=== PATIENT | male | born 1980 | race Caucasian/White ===

== ENCOUNTER 2021-03-22 08:52 | Emergency (ER) | payer OTHER, SELFPAY ==
[2021-03-22 09:05] VITALS: BP 144/88; PULSE 84; RESP 18; TEMP 36.6; O2SAT 99; BMI 27.8
[2021-03-22] MEDS: HYDROCODONE/ACET 5/325 TABLET 1 TAB PO (09:09)
[2021-03-22] MEDS: predniSONE 20 MG TABLET 60 MG PO (09:12)
--- NOTE | 2021-03-22 09:17 | ED.BACK ---
HPI - Back Pain/Injury General Chief Complaint: Back Pain/Injury Stated Complaint: lower back pain Time Seen by Provider: 03/22/21 09:00 Source: patient Mode of arrival: Ambulatory Limitations: no limitations History of Present Illness HPI Narrative: 40-year-old male former smoker with history of lumbar radiculopathy presents with a chief complaint of few days of worsening lumbar pain that radiates into both hips and lateral thighs but stops at the knees. He is unclear what activity he may have set off this time but states it happens every 6 months or so. He states the pain is worse when he moves and improves with rest. He states it is sharp and stabbing in nature. He denies any numbness, tingling or weakness. He denies any footdrop. He denies any fever, chills or trauma. Denies any history of IV drug abuse or blood thinners. He denies loss of control of bowel or bladder. MD Complaint: back pain Onset (ago): day(s) Duration: constant Similar Symptoms Previously: Yes Location: lumbar spine Severity: moderate Quality: sharp and stabbing Radiation: left leg and right leg Relieving factors: immobilization Exacerbating factors: movement and walking Associated symptoms: denies other symptoms Treatments prior to arrival: NSAIDS Related Data Previous Rx's Medication Instructions Recorded cyclobenzaprine 10 mg PO TID PRN #14 tab 03/22/21 gabapentin 300 mg PO BEDTIME #14 cap 03/22/21 hydrocodone-acetaminophen 1 tab PO Q4-6H PRN #10 tab 03/22/21 ketorolac 10 mg PO Q6H PRN #14 tab 03/22/21 methylprednisolone [Medrol (Jose)] See Rx Instructions .ROUTE 03/22/21 .COMPLEX #21 ea Allergies Allergy/AdvReac Type Severity Reaction Status Date / Time codeine Allergy Rash Verified 03/22/21 09:05 Review of Systems Constitutional Constitutional: Denies chills, Denies fatigue, Denies fever(s), Denies frequent falls, Denies lethargy and Denies weakness Eyes Eyes: Denies change in vision, Denies eye discharge, Denies irritation and Denies loss of vision ENT Ears, Nose, Mouth, and Throat: Denies change in voice, Denies dizziness, Denies neck pain, Denies sore throat and Denies throat swelling Cardiovascular Cardiovascular: Denies chest pain, Denies irregular heart rhythm, Denies lightheadedness, Denies palpitations, Denies dyspnea, Denies dyspnea on exertion and Denies orthopnea Respiratory Respiratory: Denies cough, Denies dyspnea, Denies dyspnea on exertion and Denies wheezing Gastrointestinal Gastrointestinal: Denies abdominal pain, Denies change in bowel habits, Denies diarrhea, Denies nausea and Denies vomiting Musculoskeletal Musculoskeletal: Reports back pain, Denies neck pain, Denies numbness and Reports radiating pain into limb Integumentary/Breasts Skin/Breast: Denies pruritus, Denies erythema, Denies rash and Denies wounds Neurologic Neurologic: Denies behavioral changes, Denies confusion, Denies dizziness, Denies frequent falls, Denies loss of vision, Denies numbness and Denies weakness Psychiatric Psychiatric: Denies anxiety, Denies behavioral changes, Denies confusion, Denies depression, Denies homicidal ideation and Denies suicidal ideation Endocrine Endocrine: Denies fatigue, Denies flushing and Denies palpitations Hematologic/Lymphatic Hematologic/Lymphatic: Denies easy bruising Allergic/Immunologic Allergic/Immunologic: Denies urticaria, Denies throat swelling and Denies wheezing Patient History Social History Smoking Status: Former smoker Smoking Status: Former smoker alcohol intake frequency: 3 or more drinks per day Alcohol type: beer Substance Use Type: does not use Exam Initial Vital Signs Initial Vital Signs: Vital Signs Temperature 97.8 F 03/22/21 09:05 Pulse Rate 84 03/22/21 09:05 Respiratory Rate 18 03/22/21 09:05 Blood Pressure 144/88 H 03/22/21 09:05 Pulse Oximetry 99 03/22/21 09:05 Const General: cooperative and well developed Nutritional Appearance: well nourished [facility] Head: normocephalic and atraumatic Ears: external ears normal and TM's normal bilaterally Nose: external nose normal and No nasal discharge Face and sinus: sinuses nontender, face symmetric, no sinus tenderness and No dry mucous membranes Mouth: oral mucosae normal and moist mucous membranes Teeth and gingiva: dentition normal Throat: tonsils normal and uvula midline Eyes General: appearance normal, both eyes and all related structures Eyelids: eyelids normal Conjunctivae: conjunctivae normal Sclera: sclerae normal Pupils: PERRL EOM: EOM intact bilaterally Neck Neck: normal visual inspection, trachea midline, No lymphadenopathy, No midline deformity and No JVD Lymphatic: No lymphedema Chest Chest: normal inspection of the chest Resp Effort & Inspection: normal respiratory effort, able to speak in complete sentences, no respiratory distress and no use of accessory muscles Auscultation: clear to auscultation bilaterally, no rales, no rhonchi and no wheezes Cardio Rate: regular rate Rhythm: regular rhythm Heart Sounds: no click, no gallops, no murmurs and no rubs Pulses: normal peripheral pulses GI Inspection: non-distended Palpation: soft, no hepatosplenomegaly, No guarding, No pulsatile mass and No tender Auscultation: normal bowel sounds Back/Spine/Pelvis Back: CVA tenderness Cervical Spine: cervical ROM normal and No pain with cervical ROM Other: BACK: belt tender but free of any obvious external abnormalities. Patient exam notes decreased range of motion and muscle spasm, but no CVA tenderness, or vertebral point tenderness. There are no symptoms of cauda equina such as saddle anesthesia, and decreased reflexes, decreased sensation or strength. Skin General: no rashes or lesions noted, No jaundice and No petechiae Neuro General: patient alert, patient oriented x3, gait normal and no focal motor deficits Speech: speech normal Extrem General: full ROM, no clubbing, cyanosis or edema, no pedal edema and no calf tenderness Psych Appearance: well kempt Mental Status: mental status grossly normal Attitude: cooperative Thought Content: normal and suicidality Judgment: judgment good Course Orders Ordered: Discontinued Medications Hydrocodone Bitart/Acetaminophen (Hydrocodone/Acet 5/325 Tablet) 1 tab PO NOW ONE Stop: 03/22/21 09:05 Last Admin: 03/22/21 09:09 Dose: 1 tab Documented by: CTR.[email or web address] Prednisone (Prednisone 20 Mg Tablet) 60 mg PO NOW ONE Stop: 03/22/21 09:05 Last Admin: 03/22/21 09:12 Dose: 60 mg Documented by: CTR.[email or web address] Vital Signs Vital signs: Vital Signs - 8 hr 03/22/21 09:05 Temperature 97.8 F Pulse Rate 84 Respiratory Rate 18 Blood Pressure 144/88 H Pulse Oximetry 99 MDM - Back Pain/Injury MDM Narrative Medical decision making narrative: Multiple etiologies of back pain considered including; Epidural abscess, cauda equina, mass occupying lesion, and other considered, however no red flags consistent with neurosurgical emergency are present. Return precautions given and questions answered to his apparent satisfaction Discharge Plan Departure Patient Disposition: Home Clinical Impression: Bilateral lumbar radiculopathy Instructions: DI for Lumbar Radiculopathy Activity Restrictions/Additional Instructions: *You have been diagnosed with [on chronic bilateral lumbar radiculopathy] *What to do: *Please continue to take your regular medications as directed. [x ] New medication prescriptions sent to your pharmacy: [[facility] in [place]] [ ] New medication written as a paper prescription [ ] No new medications given *Please follow up with your primary care provider in 2-3 days, call for an appointment. Let them know you were seen in the Emergency Department and that we ask that you be seen in follow up. We will electronically transmit a record of today's note if your PCP is in our system *If you do not have a primary care provider please contact the [facility] Resource line at [phone]. They will ask some questions about your medical history and help get you set up with a doctor in the community. *Return to Emergency Department if you should have any new, worsening or concerning symptoms, such as [fever greater than 101 F, shaking chills, worsening pain, persistent vomiting or other bothersome symptoms] Prescriptions: New cyclobenzaprine 10 mg tablet 10 mg PO TID PRN (Reason: muscle spasm) Qty: 14 RF: 0 hydrocodone-acetaminophen 5-325 mg tablet 1 tab PO Q4-6H PRN (Reason: pain) Qty: 10 RF: 0 ketorolac 10 mg tablet 10 mg PO Q6H PRN (Reason: pain) Qty: 14 RF: 0 gabapentin 300 mg capsule 300 mg PO BEDTIME Qty: 14 RF: 0 methylprednisolone [Medrol (Jose)] 4 mg tablets,dose pack See Rx Instructions .ROUTE .COMPLEX Qty: 21 RF: 0 Referrals: [facility] [Outside] Stand Alone Forms: Work Release Note
== END 2021-03-22 09:28 | disposition home or self-care (01) ==
PROVIDERS: Emergency Provider Emergency Medicine
DX: M54.16 Radiculopathy, lumbar region (principal)
CPT/HCPCS: 99283

== ENCOUNTER 2024-09-28 23:12 | Emergency (ER) | payer OTHER, SELFPAY ==
[2024-09-28 23:17] VITALS: BP 143/92; PULSE 94; O2SAT 98
[2024-09-28 23:22] VITALS: BP 143/92; PULSE 95; RESP 20; TEMP 36.4; O2SAT 99; BMI 32.2
--- NOTE | 2024-09-28 23:25 | ED.ABDPAIN ---
HPI - Abdominal Pain General Chief Complaint: Abdominal Pain Stated Complaint: abd pain Time Seen by Provider: 09/28/24 23:17 History of Present Illness HPI narrative: 43-year-old male with no reported past medical history (has not followed with PCP for many years) presents by private vehicle from home for 2-3 days of midepigastric abdominal pain with acid sensation. Saw the walk-in clinic yesterday for sore throat and he was reported to be negative for strep. He was prescribed antacids, which he was not taken yet. Patient states that he feels like things are burning in his mid abdomen and occasionally they get caught and he was to spit backup. Denies history of abdominal surgeries. Reports 2-3 alcoholic beverages per night. Related Data Previous Rx's Medication Instructions Recorded cyclobenzaprine 10 mg tablet 10 mg PO TID PRN muscle spasm #14 03/22/21 tabs gabapentin 300 mg capsule 300 mg PO BEDTIME #14 caps 03/22/21 hydrocodone 5 mg-acetaminophen 325 1 tab PO Q4-6H PRN pain #10 tabs 03/22/21 mg tablet ketorolac 10 mg tablet 10 mg PO Q6H PRN pain #14 tabs 03/22/21 methylprednisolone 4 mg tablets in See Rx Instructions PO .COMPLEX 03/22/21 a dose pack (Medrol (Jose)) #21 ea ondansetron 4 mg disintegrating 4 mg PO Q8H PRN nausea and 09/29/24 tablet vomiting #30 tabs ondansetron 4 mg disintegrating 4 mg PO Q8H PRN nausea and 09/29/24 tablet vomiting #30 tabs sucralfate 1 gram tablet 1 g PO QACHS #30 tabs 09/29/24 sucralfate 1 gram tablet 1 g PO QACHS #30 tabs 09/29/24 Allergies Allergy/AdvReac Type Severity Reaction Status Date / Time codeine Allergy Rash Verified 03/22/21 09:05 Patient History Social History Smoking Status: Former smoker Smoking Status: Former smoker alcohol intake frequency: 3 or more drinks per day Alcohol type: beer Exam Initial Vital Signs Initial Vital Signs: Vital Signs Pulse Rate 94 H 09/28/24 23:17 Blood Pressure 143/92 H 12/19/24 23:17 Pulse Oximetry 98 12/19/24 23:17 Const: Awake, alert, no acute distress, nontoxic appearing Cardiac: regular rate, regular rhythm RESP: unlabored, clear bilaterally, no wheezing GI: Soft, midepigastric tenderness to deep palpation without rebound or guarding Skin: Warm, Dry, intact, no rashes Neuro: AO x3, CN II-XII grossly intact, moves all extremities Course Orders Ordered: ED Orders 09/28/24 23:24 CT abdomen pelvis w con Stat 09/28/24 23:25 EKG-12 Lead Stat 09/28/24 23:30 CBC Auto Diff [Complete Blood Count AUTO DIFF] Stat CMP [Comprehensive Metabolic Panel] Stat Ethanol (ETOH) Stat Lactate (Lactic Acid) Stat Lipase Stat Troponin & CK Cardiac Panel Stat Discontinued Medications Al Hydrox/Mg Hydrox/Simethicone (Mag Hydrox/Alum/Simeth 30 Ml Udc) 30 ml PO NOW ONE Stop: 09/29/24 00:16 Last Admin: 09/29/24 00:28 Dose: 30 ml Lidocaine HCl (Lidocaine Viscous 2% 15 Ml Solution) 15 ml PO NOW ONE Stop: 09/29/24 00:16 Last Admin: 09/29/24 00:28 Dose: 15 ml Vital Signs Vital signs: Vital Signs - 8 hr 09/28/24 23:17 09/28/24 23:17 09/28/24 23:22 Temperature 97.6 F Pulse Rate 94 H 95 H Respiratory Rate 20 Blood Pressure 143/92 H 143/92 H Pulse Oximetry 98 99 Oxygen Delivery Method Room Air 09/28/24 23:30 09/29/24 00:00 09/29/24 00:30 Temperature Pulse Rate 88 78 80 Respiratory Rate Blood Pressure Pulse Oximetry 97 97 98 Oxygen Delivery Method MDM - Abdominal Pain Differential Diagnosis Differential diagnosis: Likely abdominal pain, acute appendicitis and calculus of kidney Lab Data 09/28/24 23:30 09/28/24 23:30 Labs: Lab Results 09/28/24 Range/Units 23:30 WBC 12.1 H (4.5-11.0) X10^3/uL RBC 4.83 (4.5-5.9) X10^6/uL Hgb 15.4 (13.5-17.5) g/dL Hct 44.8 (41-53) % MCV 92.8 (80-100) fL MCH 31.8 (26-34) PG MCHC 34.3 (30-36) % RDW 13.2 (11.6-14.8) % Plt Count 294 (150-400) X10^3/uL Neut % (Auto) 68.6 (50-75) % Lymph % (Auto) 20.5 L (25-40) % [place] % (Auto) 7.7 (3-14) % Eos % (Auto) 2.9 (2-4) % Baso % (Auto) 0.3 (0-2) % Neut # (Auto) 8300 H (8964-5944) /uL Lymph # (Auto) 2500 (1775-7452) /uL [place] # (Auto) 900 (0-900) /uL Eos # (Auto) 400 (0-450) /uL Baso # (Auto) 0 (0-100) /uL Sodium 137 (137-145) mmol/L Potassium 3.7 (3.4-5.1) mmol/L Chloride 105 (98-107) mmol/L Carbon Dioxide 26 (22-32) mmol/L BUN 20 (9-20) mg/dL Creatinine 1.15 (0.66-1.25) mg/dL Estimated GFR > 60 (>60) mL/min BUN/Creatinine Ratio 17.4 (6-22) Glucose 153 H (70-100) mg/dL Lactate 1.1 (0.7-2.1) mmol/L Calcium 9.7 (8.4-10.2) mg/dL Total Bilirubin 0.4 (0.2-1.3) mg/dL AST 49 (17-59) IU/L ALT 72 H (<50) IU/L Alkaline Phosphatase 67 (38-126) U/L Total Creatine Kinase 213 H (55-170) U/L Troponin I < 0.012 (0.01-0.034) ng/mL Total Protein 7.6 (6.3-8.2) g/dL Albumin 4.2 (3.5-5.0) g/dL Globulin 3.4 (1.7-4.1) g/dL Albumin/Globulin Ratio 1.2 (1.0-2.8) Lipase 64 (23-300) U/L Ethyl Alcohol < 10 ( - 10) mg/dL Imaging Data CT scan - abdomen/pelvis: Radiologist's Impression: PROCEDURE: CT ABDOMEN PELVIS W CON INDICATIONS: MIDEPIGASTRIC PAIN, VOMITING X 4 DAYS TECHNIQUE: After the administration of intravenous contrast, axial sections acquired from the lung bases to the pubic symphysis. Coronal and sagittal reformats were performed. For radiation dose reduction, the following was used: automated exposure control, adjustment of mA and/or kV according to patient size. COMPARISON: None. FINDINGS: Image quality: Diagnostic. Lower Chest: No significant findings. ABDOMEN: Liver: No solid mass. Severe steatosis. Gallbladder: No radiopaque gallstones or wall thickening. Biliary ducts: No biliary dilation. Pancreas: No ductal dilation. Spleen: Size is within normal limits. Adrenal Glands: No adrenal nodules. Kidneys and Ureters: No hydronephrosis. No solid mass. No complex renal cystic lesion which requires follow up. Stomach and Bowel: Normal colonic caliber, without significant wall thickening. Normal appendix. Mild diverticulosis. Peritoneum: No abnormal intraperitoneal fluid. No free air. Ventral Wall: No significant ventral hernia. Small umbilical hernia containing fat. Abdominal Nodes: No retroperitoneal or mesenteric adenopathy by size criteria. Vessels: Aorta and inferior vena cava are normal in size. PELVIS: Pelvic Organs: Unremarkable. Bladder: No bladder wall thickening, accounting for underdistention. Pelvic Nodes: No enlarged lymph nodes. Miscellaneous: No inguinal hernias are seen. Bones: No aggressive osseous abnormality. IMPRESSION: No acute abnormality. No peripancreatic fat stranding. No evidence of acute cholecystitis. Hepatic steatosis. In the absence of alcohol use or other confounding factors, elevated LFTs may indicate non-alcoholic steatohepatitis (GONZALEZ). Dictated by: Miguel Perez M.D. on 09/29/2024 at 0:00 Approved by: Miguel Perez M.D. on 09/29/2024 at 0:04 [facility] Narrative Medical decision making narrative: Patient with worsening abdominal pain, occasionally regurgitates. Abdomen soft, there is tenderness to deep palpation in the midepigastric region. Consider pancreatitis vs gastritis vs cholecystitis. Does endorse hx of alcohol use and had 2 white claws this evening. Labs, GI cocktail, CT scan ordered. Laboratory work reviewed, no significant abnormalities. WBC count 12.1, nonspecific. Hemoglobin 15.4, platelet count 294, sodium 137, potassium 3.7, creatinine 1.15, lipase 64, T bili 0.4, AST 49, ALT 72, alk phos 67. CT of the abdomen and pelvis shows enlarged fatty liver, no other acute findings. Patient states that pain was mildly improved with GI cocktail, but still present. Patient informed of lab and imaging findings, uncertain etiology of patient's pain, however with CT scan normal except for large liver he quite possibly has some gastric component to his pain. He was advised to decrease his alcohol intake and to monitor his diet and decrease a irritants to see if this helps his symptoms. Zofran and Carafate prescription sent to pharmacy of choice. Note for work provided. Discharge Plan Departure Patient Disposition: Home Clinical Impression: Abdominal pain Instructions: DI for Abdominal Pain-Adult Activity Restrictions/Additional Instructions: Your lab work did not show any major abnormalities. Your abdominal CT scan showed that you have a fatty liver, but there were no other major problems seen. This could be related to irritation of the stomach lining, or gastritis. For the next several weeks decrease your alcohol intake and avoid spicy or acidic foods such as sodas, red sauces, caffeinated beverages. These can worsen irritation of the stomach. The zofran prescribed can help with nausea and vomiting. Sucralfate can help to line the stomach so it can heal better. Prescriptions: New ondansetron 4 mg tablet,disintegrating 4 mg PO Q8H PRN (Reason: nausea and vomiting) Qty: 30 0RF sucralfate 1 gram tablet 1 g PO QACHS Qty: 30 0RF ondansetron 4 mg tablet,disintegrating 4 mg PO Q8H PRN (Reason: nausea and vomiting) Qty: 30 0RF sucralfate 1 gram tablet 1 g PO QACHS Qty: 30 0RF No Action cyclobenzaprine 10 mg tablet 10 mg PO TID PRN (Reason: muscle spasm) Qty: 14 0RF hydrocodone-acetaminophen 5-325 mg tablet 1 tab PO Q4-6H PRN (Reason: pain) Qty: 10 0RF ketorolac 10 mg tablet 10 mg PO Q6H PRN (Reason: pain) Qty: 14 0RF gabapentin 300 mg capsule 300 mg PO BEDTIME Qty: 14 0RF methylprednisolone [Medrol (Jose)] 4 mg tablets,dose pack See Rx Instructions .ROUTE .COMPLEX Qty: 21 0RF Rx Instructions: orally per package directions Stand Alone Forms: Patient Portal/API/Survey, Work Release Note
[2024-09-28 23:30] VITALS: PULSE 88; O2SAT 97
[2024-09-28 23:39] LABS: Add Manual Diff / Slide Review NO; Basophils Absolute Auto 0 /uL (0-100); Basophils Percent Auto 0.3 % (0-2); Eosinophils Absolute Auto 400 /uL (0-450); Eosinophils Percent Auto 2.9 % (2-4); Hematocrit 44.8 % (41-53); Hemoglobin 15.4 g/dL (13.5-17.5); Lymphocytes Absolute Auto 2500 /uL (1100-4500); Lymphocytes Percent Auto 20.5 % (25-40); Mean Corpuscular HGB Conc 34.3 % (30-36); Mean Corpuscular Hemoglobin 31.8 PG (26-34); Mean Corpuscular Volume 92.8 fL (80-100); Monocytes Absolute Auto 900 /uL (0-900); Monocytes Percent Auto 7.7 % (3-14); Neutrophils Absolute Auto 8300 /uL (1500-7000); Neutrophils Percent Auto 68.6 % (50-75); Platelet Count 294 X10^3/uL (150-400); Red Blood Cell Count 4.83 X10^6/uL (4.5-5.9); Red Cell Distribution Width 13.2 % (11.6-14.8); White Blood Cell Count 12.1 X10^3/uL (4.5-11.0)
[2024-09-28 23:49] LABS: Alanine Aminotransferase 72 IU/L (<50); Albumin 4.2 g/dL (3.5-5.0); Albumin Globulin Ratio 1.2 (1.0-2.8); Alkaline Phosphatase 67 U/L (38-126); Aspartate Aminotransferase 49 IU/L (17-59); BUN Creatinine Ratio 17.4 (6-22); Bilirubin Total 0.4 mg/dL (0.2-1.3); Blood Urea Nitrogen 20 mg/dL (9-20); Calcium 9.7 mg/dL (8.4-10.2); Carbon Dioxide 26 mmol/L (22-32); Chloride 105 mmol/L (98-107); Creatine Kinase 213 U/L (55-170); Estimated Glomerular Filt Rate > 60 mL/min (>60); Globulin 3.4 g/dL (1.7-4.1); Glucose 153 mg/dL (70-100); HEMOLYSIS < 15 (0-50); Lipase 64 U/L (23-300); Potassium 3.7 mmol/L (3.4-5.1); Sodium 137 mmol/L (137-145); Total Protein 7.6 g/dL (6.3-8.2)
--- NOTE | 2024-09-28 23:54 | EKG_ITS ---
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
[2024-09-28 23:58] LABS: Ethanol (ETOH) < 10 mg/dL
[2024-09-29] VITALS: PULSE 78; O2SAT 97
[2024-09-29 00:01] LABS: Troponin I < 0.012 ng/mL (0.01-0.034)
[2024-09-29 00:05] LABS: Lactate (Lactic Acid) 1.1 mmol/L (0.7-2.1)
[2024-09-29] MEDS: MAG HYDROX/ALUM/SIMETH 30 ML UDC PO (00:28)
[2024-09-29] MEDS: LIDOCAINE VISCOUS 2% 15 ML SOLUTION PO (00:28)
[2024-09-29 00:30] VITALS: PULSE 80; O2SAT 98
== END 2024-09-29 00:58 | disposition home or self-care (01) ==
PROVIDERS: Emergency Provider Emergency Medicine
DX: R10.13 Epigastric pain (principal); R07.9 Chest pain, unspecified; F10.90 Alcohol use, unspecified, uncomplicated; Y90.0 Blood alcohol level of less than 20 mg/100 ml
CPT/HCPCS: 74177; 80053; 80320; 82550; 83605; 83690; 84484; 85025; 93005; 99283; 99284; Q9967